=== PATIENT | male | born 1955 | race Caucasian/White ===

== ENCOUNTER 2023-02-25 09:54 | Outpatient (CLI) | payer MEDICARE, SELFPAY ==
[2023-02-25 10:38] LABS: Basophils % 0.5 %; Eosinophils # 0.1 10^3/uL (0.0-0.8); Eosinophils % 0.8 %; Lymphocytes # 0.6 10^3/uL (0.8-4.8); Lymphocytes % 8.5 %; Mean Corpuscular HGB Conc 30.8 g/dL (30-55); Mean Corpuscular Hemoglobin 26.2 pg (27-33); Mean Platelet Volume 11.2 fL (7.4-10.4); Monocytes # 0.4 10^3/uL (0.2-0.9); Monocytes % 6.8 %; Neutrophils # 5.36 10^3/uL (1.8-7.7); Neutrophils % 82.8 %; Nucleated Red Blood Cells % 0 %; Platelet Count 198 10^3/cmm (157-399); Red Blood Count 2.33 10^6/uL (3.85-5.65); Red Cell Distribution Width 15.7 % (12.1-15.1); White Blood Count 6.47 10^3/uL (3.29-11.43)
[2023-02-25 10:53] LABS: Alanine Aminotransferase 25 U/L (0-41); Albumin Level 2.6 g/dL (3.5-5.2); Alkaline Phosphatase 500 U/L (40-130); Anion Gap 13.6 (5-19); Aspartate Amino Transferase 27 U/L (0-40); Blood Urea Nitrogen 13 mg/dL (8-23); Carbon Dioxide 22 mmol/L (22-29); Chloride 105 mmol/L (98-107); Globulin 2.8 g/dL (1.3-4.6); Glomerular Filtration Rate 166.4 mL/min (90-130); Glucose 209 mg/dL (65-115); Osmolality Calculated 290 mOsm/kg (285-295); Potassium 3.6 mmol/L (3.5-5.1); Sodium 137 mmol/L (136-145); Total Bilirubin 1.5 mg/dL (0.15-1.2); Total Protein 5.4 g/dL (6.6-8.7)
[2023-02-25 11:36] LABS: Hematocrit 19.8 % (37-53)
== END 2023-02-25 09:55 | disposition home or self-care (01) ==
PROVIDERS: Visit Provider Nurse Practitioner
DX: D64.9 Anemia, unspecified (principal); K85.90 Acute pancreatitis without necrosis or infection, unspecified
CPT/HCPCS: 36415; 80053; 85025

== ENCOUNTER 2023-02-25 16:32 | Observation (INO) | payer MEDICARE, SELFPAY ==
[2023-02-25] VITALS (9 sets, daily range): BP systolic 95–117; BP diastolic 61–73; PULSE 61–99; RESP 14–18; TEMP 36.7–36.8; O2SAT 96–99; BMI 20.2
[2023-02-25 18:44] LABS: Basophils % 0.3 %; Eosinophils # 0.1 10^3/uL (0.0-0.8); Eosinophils % 1.1 %; Lymphocytes # 0.6 10^3/uL (0.8-4.8); Lymphocytes % 10.2 %; Mean Corpuscular HGB Conc 30.9 g/dL (30-55); Mean Corpuscular Volume 84.3 fl (82-101); Mean Platelet Volume 12.1 fL (7.4-10.4); Monocytes # 0.5 10^3/uL (0.2-0.9); Monocytes % 7.7 %; Neutrophils # 4.87 10^3/uL (1.8-7.7); Nucleated Red Blood Cells % 0 %; Platelet Count 191 10^3/cmm (157-399); Red Blood Count 2.42 10^6/uL (3.85-5.65); Red Cell Distribution Width 15.8 % (12.1-15.1); White Blood Count 6.09 10^3/uL (3.29-11.43)
[2023-02-25 18:47] LABS: Hematocrit 20.4 % (37-53)
--- NOTE | 2023-02-25 18:56 | PC.NURSE ---
Report taken from IVAN Garzon at this time.
--- NOTE | 2023-02-25 19:42 | PC.NURSE ---
Report called to IVAN Keith on Med-Surg. All questions and concerns addressed at time of report.
--- NOTE | 2023-02-25 19:44 | W.ED.RECABL ---
HPI - Recheck/Abnormal Lab/Rx General: Chief Complaint: Recheck/Abnormal Lab/Rx Stated Complaint: low blood count, Dr Lozano sent Time Seen by Provider: 02/25/23 16:57 History of Present Illness: This patient is a 67-year-old white male who presents to the emergency department with anemia. He went to his doctor's office earlier today and his hemoglobin was 6.1. He was sent to the emergency department for transfusion. Patient states he has a history of chronic pancreatitis. States he has some internal bleeding couple of weeks ago secondary to that but it has cleared up now. States he is feeling somewhat weak but is not having any lightheadedness, chest pain or shortness of breath. Patient has had prior blood transfusions secondary to similar circumstances. Patient states he gets care for his chronic pancreatitis at [facility]. Review of Systems General: Reports: 10 or more systems reviewed and unremarkable except in HPI and below Physical Exam Const: COMMON NORMALS: no acute distress, patient oriented x3 and no limitations GENERAL APPEARANCE: cooperative and comfortable HENMT: COMMON NORMALS: normocephalic, atraumatic, Normal nasal mucous membranes and turbinates present, moist oral mucous membranes and oropharynx normal HEAD & SCALP: normal to inspection, normocephalic and atraumatic FACE & SINUS: normal facial exam NOSE: Normal nasal mucous membranes and turbinates present Eye: COMMON NORMALS: Equal, round and reactive pupils present, EOMs intact bilaterally and conjunctivae normal GENERAL EYE: appearance normal, both eyes and all related structures CONJUNCTIVA: Yes conjunctivae normal PUPIL: Yes Equal, round and reactive pupils present Neck/C-Spine: COMMON NORMALS: supple and no JVD Chest: COMMONS NORMALS: normal inspection of the chest Resp: COMMON NORMALS: normal respiratory effort and clear to auscultation bilaterally AUSCULTATION: clear to auscultation bilaterally Cardio: COMMON NORMALS: no JVD, regular rate, regular rhythm, No gallops present (Cardio), No murmurs present (Cardio) and No rub (Cardio) RATE: regular rate RHYTHM: regular rhythm GI: COMMON NORMALS: Normal to inspection, nondistended, normoactive bowel sounds present, Soft to palpation and non-tender AUSCULTATION: Yes normoactive bowel sounds PALPATION: Yes Soft to palpation : COMMON NORMALS: Yes no CVA tenderness BLADDER/KIDNEY EXAM: Yes no CVA tenderness Back/Pelvis: COMMON NORMALS: no CVA tenderness and thoracic and lumbar spine normal to inspection Extremity: COMMON NORMALS: normal to inspection Neuro: COMMON NORMALS: patient oriented x3 and CN's II-XII intact bilaterally Psych: COMMON NORMALS: mental status grossly normal, Normal thought process present and cooperative THOUGHT PROCESS: Normal thought process present Skin: COMMON NORMALS: no rashes or lesions noted, turgor normal and no jaundice GENERAL SKIN EXAM: no rashes or lesions noted, turgor normal and pallor Course Vital Signs: Vital signs: Vital Signs Temperature 98.0 F 02/25/23 16:41 Pulse Rate 79 02/25/23 19:38 Respiratory Rate 18 02/25/23 19:38 Blood Pressure 117/71 02/25/23 19:38 Pulse Oximetry 99 02/25/23 19:38 Oxygen Delivery Me thod Room Air 02/25/23 19:38 MDM - Recheck/Abnormal Lab/Rx Medical Decision Making Recheck of his hemoglobin in the emergency department was 6.3. We did type and screen him. I did discuss the case with Dr. Ozuna, hospitalist. We will admit him to an observation bed for blood transfusion. Patient will be sent to the floor shortly. He is stable. Lab Data 02/25/23 17:15 Laboratory Results WBC 6.09 10^3/uL (3.29-11.43) 02/25/23 17:15 RBC 2.42 10^6/uL (3.85-5.65) L 02/25/23 17:15 Hgb 6.30 g/dL (11.27-16.99) L* 02/25/23 17:15 Hct 20.4 % (37-53) L* 02/25/23 17:15 MCV 84.3 fl (82-101) 02/25/23 17:15 MCH 26.0 pg (27-33) L 02/25/23 17:15 MCHC 30.9 g/dL (30-55) 02/25/23 17:15 RDW 15.8 % (12.1-15.1) H 02/25/23 17:15 Plt Count 191 10^3/cmm (157-399) 02/25/23 17:15 MPV 12.1 fL (7.4-10.4) H 02/25/23 17:15 Neut % (Auto) 80.0 % 02/25/23 17:15 Lymph % (Auto) 10.2 % 02/25/23 17:15 Guthrie % (Auto) 7.7 % 02/25/23 17:15 Eos % (Auto) 1.1 % 02/25/23 17:15 Baso % (Auto) 0.3 % 02/25/23 17:15 Neut # (Auto) 4.87 10^3/uL (1.8-7.7) 02/25/23 17:15 Lymph # (Auto) 0.6 10^3/uL (0.8-4.8) L 02/25/23 17:15 Guthrie # (Auto) 0.5 10^3/uL (0.2-0.9) 02/25/23 17:15 Eos # (Auto) 0.1 10^3/uL (0.0-0.8) 02/25/23 17:15 Baso # (Auto) 0.0 10^3/uL (0.0-0.1) 02/25/23 17:15 Nucleated RBC % (auto) 0 % 02/25/23 17:15 Nucleated RBCs # 0.0 /100WBC 02/25/23 17:15 Blood Type A Positive 02/25/23 17:15 Rho(D) Type Positive 02/25/23 17:15 Antibody Screen Negative 02/25/23 17:15 No radiology studies performed this visit Discharge Plan Discharge Admit Provider: Day Ozuna Condition: Stable Coding Level of Care Code ED Senior Application Security Consultant for Alexander Valerio
--- NOTE | 2023-02-25 19:58 | PM.HP ---
Providers/Chief Complaint Admitting Physician: Day Ozuna MD Chief Complaint: low blood count, Dr Lozano sent History of Present Illness Gareth Brenner is a 67 year old male with history of chronic pancreatitis, has transportation officer at [place], patient is stating that he has received blood transfusion twice in the last 10 years for his GI bleed he has had EGD and colonoscopy and would like to follow-up with his transportation officer at [place]. He is agreeable for stay in the hospital for blood transfusion. He is hemodynamically stable. Globin at the time of admission is 6.3 he was sent from the PCP clinic for drop in hemoglobin otherwise he was not experiencing significant symptoms. Review of Systems Const: Denies: fever(s) Eyes: Denies: change in vision ENMT: Denies: throat pain Card: Denies: chest pain Resp: Denies: dyspnea GI: Denies: abdominal pain : Denies: flank pain Musc: Denies: neck pain Medications/Allergies Home Medications Medication Instructions Recorded Confirmed Last Taken Type calcium 150 mg tablet See Rx Instructions .Route .COMPLEX 02/25/23 02/25/23 02/25/23 History folic acid 1 mg tablet See Rx Instructions .Route .COMPLEX 02/25/23 02/25/23 02/25/23 History qipqme-zynvlsyt-ubsyajg 1 cap PO TIDWM 02/25/23 02/25/23 02/25/23 History 12,000-38,000-60,000 unit capsule,delayed rel (Creon) oxycodone 10 mg tablet 10 mg PO TID PRN Pain 02/25/23 02/25/23 02/25/23 15:30 History vitamin E 600 unit capsule See Rx Instructions .Route .COMPLEX 02/25/23 02/25/23 02/25/23 History ferrous sulfate 325 mg (65 mg See Rx Instructions .Route 02/26/23 02/25/23 02/25/23 Rx iron) tablet (iron) .COMPLEX #30 tabs pantoprazole 40 mg tablet,delayed 40 mg PO DAILY #30 tabs 02/26/23 02/25/23 02/25/23 Rx release (Protonix) Allergies Allergy/AdvReac Type Severity Reaction Status Date / Time No Known Allergies Allergy Verified 02/25/23 19:55 PFSH Acute PFSH: Medical History (Updated 02/26/23 @ 09:59 by Day Ozuna MD) Chronic pancreatitis Family History (Updated 02/26/23 @ 09:59 by Day Ozuna MD) Denies family history of CAD (coronary artery disease) Social History (Updated 02/26/23 @ 09:59 by Day Ozuna MD) Smoking and tobacco status: never smoked Alcohol intake: never Substance/Drug Use: never Vitals/I&O/Wt Last Vital Signs Temp 98.0 F 02/25/23 16:41 Pulse 79 02/25/23 19:38 Resp 18 02/25/23 19:38 BP 117/71 02/25/23 19:38 Pulse Ox 99 02/25/23 19:38 O2 Del Method Room Air 02/25/23 19:38 Weight last 48 hrs Weight 63.957 kg Physical Exam Narrative: Malnourished male GCS 15 No active nausea vomiting Pale complexion GCS 15 Hemodynamic stable Pleasant cooperative Nonfocal neuro exam Awake alert oriented x3 No joint pain Data 02/26/23 04:10 02/26/23 04:10 A&P Assessment and plan (1) GI bleed: (2) Acute on chronic anemia: Plan acute on chronic anemia Severe anemia Without hemodynamic instability We will request iron panel Transfuse 2 units PRBC Patient does not want EGD and colonoscopy in this hospital stating that he would like to follow-up with transportation officer at [place] Continue Protonix 40 mg IV twice daily DVT prophylaxis contraindicated Attestations Medical Necessity Statement*: Discharge within 48-hour Diagnoses GI bleed K92.2 Acute on chronic anemia D64.9
[2023-02-25] MEDS: sodium chloride 0.9% 100 mL Bag 50 ML IV (22:31)
[2023-02-25 23:23] LABS: Ferritin 17 ng/mL (30-400); Iron 10 ug/dL (59-158); Total Iron Binding Capacity 244 mcg/dl; Unsaturated Iron Binding 234 ug/dL (112-347)
[2023-02-25] MEDS: morphine IR 15 mg Tablet PO (23:54)
[2023-02-26] VITALS (13 sets, daily range): BP systolic 94–124; BP diastolic 60–68; PULSE 68–81; RESP 14–18; TEMP 36.7–36.8; O2SAT 96–99
[2023-02-26] MEDS: sodium chloride 0.9% 100 mL Bag 50 ML IV (01:50)
[2023-02-26 04:49] LABS: Reticulocyte % 2.8 % (0.5-2.0)
[2023-02-26 04:52] LABS: Basophils % 0.8 %; Eosinophils # 0.1 10^3/uL (0.0-0.8); Eosinophils % 2.8 %; Hematocrit 25.5 % (37-53); Lymphocytes # 0.8 10^3/uL (0.8-4.8); Lymphocytes % 16.9 %; Mean Corpuscular HGB Conc 31.4 g/dL (30-55); Mean Corpuscular Hemoglobin 26.2 pg (27-33); Mean Corpuscular Volume 83.6 fl (82-101); Mean Platelet Volume 11.1 fL (7.4-10.4); Monocytes # 0.5 10^3/uL (0.2-0.9); Monocytes % 10.3 %; Neutrophils # 3.42 10^3/uL (1.8-7.7); Neutrophils % 68.8 %; Nucleated Red Blood Cells % 0 %; Platelet Count 161 10^3/cmm (157-399); Red Blood Count 3.05 10^6/uL (3.85-5.65); Red Cell Distribution Width 15.9 % (12.1-15.1); White Blood Count 4.97 10^3/uL (3.29-11.43)
[2023-02-26 05:11] LABS: Alanine Aminotransferase 22 U/L (0-41); Albumin Level 2.5 g/dL (3.5-5.2); Alkaline Phosphatase 446 U/L (40-130); Anion Gap 11.7 (5-19); Aspartate Amino Transferase 20 U/L (0-40); Blood Urea Nitrogen 12 mg/dL (8-23); Carbon Dioxide 23 mmol/L (22-29); Chloride 106 mmol/L (98-107); Globulin 2.6 g/dL (1.3-4.6); Glomerular Filtration Rate 166.4 mL/min (90-130); Glucose 114 mg/dL (65-115); Lipase 7 U/L (13-60); Magnesium 1.8 mg/dL (1.7-2.3); Osmolality Calculated 285 mOsm/kg (285-295); Potassium 3.7 mmol/L (3.5-5.1); Sodium 137 mmol/L (136-145); Total Bilirubin 1.8 mg/dL (0.15-1.2); Total Protein 5.1 g/dL (6.6-8.7)
[2023-02-26 05:12] LABS: Creatinine Clr Calc Pharmacy 89.1376
[2023-02-26 05:31] LABS: Folate Level 18.1 ng/mL (4.5-32.2)
[2023-02-26 05:51] LABS: Vitamin B12 > 2000 pg/mL (232-1245)
[2023-02-26] MEDS: morphine IR 15 mg Tablet PO (07:54)
[2023-02-26] MEDS: pantoprazole 40 mg SDV IVP (07:55)
--- NOTE | 2023-02-26 08:54 | PC.CHAP ---
Pastoral Care Encounter/Spiritual Assessment Type of Contact [] Declined electrotype servicer visit [] Patient/Family/Request visit [] Outpatient visit [] Follow-up visit [] Physician referral [] Code/Alert [x] Routine visit [] Staff referral [] Actively dying [] Patient sleeping [] Family support [] [] Out of room [] Palliative care [] [] Receiving care in room [] Pre-surgical visit [] Trauma [] Long length of stay [] ICU visit [] Other: Relational/Emotional Strength [x] Patient feels connected with others/family/visitors/staff [] Distress [] Loneliness/isolation [] Abandonment Spirituality of Patient [] Person of Lorna [] Attends Denominational of their Lorna [] Believes in Prayer [] Reads Bible or Voodoo materials [x] There are Spiritual issues to be addressed Wood Filler Interventions [x] Prayer [] Active listening [x] Non-anxious presence [] Spiritual/emotional support [] Crisis/trauma care [] Spiritual counseling [] Bereavement support [] Provided bereavement packet [] Provided Bible/devotional materials [] Provided toy/stuffed animal, coloring book to patient or family member [] Provided Communion [] Anointing/[place] [] Salvation [x] Completed spiritual assessment [] Other: Impact on Illness or Injury [] Angry [] Fearful [] Anxious [] Often cries [] Exhaustion [] Unable to work [] Unable to attend yazidism [] Unable to walk/stand [] Unable to read [] Unable to drive [] Unable to eat/drink [] Unable to sleep [] Unable to be with family [] Patient intubated [] Other: Summary Time spent with patient 5 min
--- NOTE | 2023-02-26 09:00 | P.DS_ITS ---
Discharge Providers Date of Admission: 02/25/23 19:15 Date of Discharge: February 26, 2023 Attending Provider at Admission: Day Ozuna MD Attending Provider at Discharge: Day Ozuna MD Diagnoses at Discharge Discharge Diagnosis (1) GI bleed: Status: Acute (2) Acute on chronic anemia: Status: Acute Reason for Visit Reason for Visit: low blood count, Dr Lozano sent Hospital Course Hospital Course 67-year-old male with history of cardiac insufficiency, uses pancreatic enzymes, was admitted for management of severe anemia he was given 2 unit PRBC and 1 bag of iron, his iron is extremely low, patient is stating that he will like to follow-up with instructional interventionist at [place] he does not want EGD and colonoscopy in the hospital, blood pressure 124/60 mmHg, he is not tachycardic. He will continue his pancreatic enzymes iron and folic acid at home. Continue Protonix at the time of discharge. Patient had acute on chronic GI blood loss normocytic anemia his MCV is low normal range secondary to iron deficiency.. He is being discharged with stable hemodynamics. Physical Exam Narrative: Hemodynamically stable GCS 15 Abdomen soft No active nausea or vomiting Pleasant and cooperative Discharge Data Studies Completed and Pending Pending at discharge Category Date Time Status Occult Blood Stool [Immunochemical Fecal OCB] Routine Lab 02/25/23 20:00 Uncollected Laboratory Results WBC 4.97 10^3/uL (3.29-11.43) 02/26/23 04:10 RBC 3.05 10^6/uL (3.85-5.65) L 02/26/23 04:10 Hgb 8.00 g/dL (11.27-16.99) L 02/26/23 04:10 Hct 25.5 % (37-53) L 02/26/23 04:10 MCV 83.6 fl (82-101) 02/26/23 04:10 MCH 26.2 pg (27-33) L 02/26/23 04:10 MCHC 31.4 g/dL (30-55) 02/26/23 04:10 RDW 15.9 % (12.1-15.1) H 02/26/23 04:10 Plt Count 161 10^3/cmm (157-399) 02/26/23 04:10 MPV 11.1 fL (7.4-10.4) H 02/26/23 04:10 Neut % (Auto) 68.8 % 02/26/23 04:10 Lymph % (Auto) 16.9 % 02/26/23 04:10 Burke % (Auto) 10.3 % 02/26/23 04:10 Eos % (Auto) 2.8 % 02/26/23 04:10 Baso % (Auto) 0.8 % 02/26/23 04:10 Reticulocyte % (Auto) 2.8 % (0.5-2.0) H 02/26/23 04:10 Neut # (Auto) 3.42 10^3/uL (1.8-7.7) 02/26/23 04:10 Lymph # (Auto) 0.8 10^3/uL (0.8-4.8) 02/26/23 04:10 Burke # (Auto) 0.5 10^3/uL (0.2-0.9) 02/26/23 04:10 Eos # (Auto) 0.1 10^3/uL (0.0-0.8) 02/26/23 04:10 Baso # (Auto) 0.0 10^3/uL (0.0-0.1) 02/26/23 04:10 Nucleated RBC % (auto) 0 % 02/26/23 04:10 Nucleated RBCs # 0.0 /100WBC 02/26/23 04:10 Sodium 137 mmol/L (136-145) 02/26/23 04:10 Potassium 3.7 mmol/L (3.5-5.1) 02/26/23 04:10 Chloride 106 mmol/L (98-107) 02/26/23 04:10 Carbon Dioxide 23 mmol/L (22-29) 02/26/23 04:10 Anion Gap 11.7 (5-19) 02/26/23 04:10 BUN 12 mg/dL (8-23) 02/26/23 04:10 Creatinine 0.5 mg/dL (0.7-1.2) L 02/26/23 04:10 GFR Calculation 166.4 mL/min (90-130) H 02/26/23 04:10 Glucose 114 mg/dL (65-115) 02/26/23 04:10 Calculated Osmolality 285 mOsm/kg (285-295) 02/26/23 04:10 Calcium 8.0 mg/dL (8.5-10.5) L 02/26/23 04:10 Magnesium 1.8 mg/dL (1.7-2.3) 02/26/23 04:10 Iron 10 ug/dL (59-158) L 02/25/23 17:15 TIBC 244 mcg/dl 02/25/23 17:15 % Saturation 4.0 % (20-50) L 02/25/23 17:15 Unsat Iron Binding 234 ug/dL (112-347) 02/25/23 17:15 Ferritin 17 ng/mL (30-400) L 02/25/23 17:15 Total Bilirubin 1.8 mg/dL (0.15-1.2) H 02/26/23 04:10 AST 20 U/L (0-40) 02/26/23 04:10 ALT 22 U/L (0-41) 02/26/23 04:10 Alkaline Phosphatase 446 U/L (40-130) H 02/26/23 04:10 Total Protein 5.1 g/dL (6.6-8.7) L 02/26/23 04:10 Albumin 2.5 g/dL (3.5-5.2) L 02/26/23 04:10 Globulin 2.6 g/dL (1.3-4.6) 02/26/23 04:10 Lipase 7 U/L (13-60) L 02/26/23 04:10 Vitamin B12 > 2000 pg/mL (232-1245) H 02/26/23 04:10 Folate 18.1 ng/mL (4.5-32.2) 02/26/23 04:10 Blood Type A Positive 02/25/23 17:15 Rho(D) Type Positive 02/25/23 17:15 Antibody Screen Negative 02/25/23 17:15 Crossmatch See Detail 02/25/23 17:15 Vitals Last Vital Signs Temp 98.0 F 02/26/23 04:27 Pulse 69 02/26/23 08:38 Resp 16 02/26/23 08:38 BP 124/60 02/26/23 07:58 Pulse Ox 96 02/26/23 08:38 O2 Del Method Room Air 02/26/23 08:38 Discharge Plan Discharge Patient Disposition: Home Condition: Stable Prescriptions: Continued oxycodone 10 mg Tablet 10 mg PO TID PRN (Reason: Pain) Creon 12,000-38,000 -60,000 unit Capsule,Delayed Release(Dr/Ec) 1 cap PO TIDWM Rx Instructions: administer with meals and/or snacks vitamin E 600 unit Capsule See Rx Instructions .ROUTE .COMPLEX Rx Instructions: unknown dose folic acid 1 mg Tablet See Rx Instructions .ROUTE .COMPLEX Rx Instructions: unknown dose calcium 150 mg Tablet See Rx Instructions .ROUTE .COMPLEX Rx Instructions: unknown dose Protonix 40 mg Tablet,Delayed Release (Dr/Ec) 40 mg PO DAILY Qty: 30 0RF iron 325 mg (65 mg iron) Tablet See Rx Instructions .ROUTE .COMPLEX Qty: 30 0RF Rx Instructions: unknown dose Discharge Orders: Discharge Order (Routine); Ordered 02/26/23 Ordered By: Day Ozuna Referrals: Glynn Lozano FNP [Referring] - 03/09/23 9:45 am (appointment with on 03/09/23 at 9:45am ) Patient Instructions: Anemia, GI Bleeding, Opioid Safety Discharge Attestations Time Spent in Discharge Care*: less than 30 min Quality Metrics Clinical Quality Measures [ No reported AMI, CVA or VTE this stay] Coding Level of Care Code Acute Code for Chg Fwd Diagnoses GI bleed K92.2 Acute on chronic anemia D64.9
[2023-02-26] MEDS: iron sucrose 200 MG in sodium chloride 0.9% (100 ml) 100 ML 220 MG IV (09:38)
== END 2023-02-26 11:24 | disposition home or self-care (01) ==
LOC: ER 16:57 → MEDSURG 19:30
PROVIDERS: Admitting Provider Internal Medicine; Emergency Provider Emergency Medicine; Visit Provider Internal Medicine
DX: K92.2 Gastrointestinal hemorrhage, unspecified (principal); D64.9 Anemia, unspecified; K85.90 Acute pancreatitis without necrosis or infection, unspecified
CPT/HCPCS: 36415; 36430; 80053; 82607; 82728; 82746; 83540; 83550; 83690; 83735; 85025; 85045; 86850; 86900; 86920; 96365; 96375; 99285; C9113; G0378; J1756; P9016

== ENCOUNTER 2023-05-20 11:12 | Outpatient (CLI) | payer MEDICARE, SELFPAY ==
[2023-05-20 11:48] LABS: Basophils % 0.1 %; Eosinophils % 0.4 %; Hematocrit 29.4 % (37-53); Lymphocytes # 0.4 10^3/uL (0.8-4.8); Lymphocytes % 5.2 %; Mean Corpuscular HGB Conc 31.3 g/dL (30-55); Mean Corpuscular Hemoglobin 25.2 pg (27-33); Mean Corpuscular Volume 80.5 fl (82-101); Mean Platelet Volume 10.8 fL (7.4-10.4); Monocytes # 0.4 10^3/uL (0.2-0.9); Neutrophils # 6.94 10^3/uL (1.8-7.7); Neutrophils % 88.7 %; Nucleated Red Blood Cells % 0 %; Platelet Count 205 10^3/cmm (157-399); Red Blood Count 3.65 10^6/uL (3.85-5.65); Red Cell Distribution Width 22.3 % (12.1-15.1); White Blood Count 7.83 10^3/uL (3.29-11.43)
[2023-05-20 12:04] LABS: Ammonia 31 umol/L (16-60)
[2023-05-20 12:11] LABS: Alanine Aminotransferase 33 U/L (0-41); Albumin Level 2.9 g/dL (3.5-5.2); Amylase 32 U/L (28-100); Blood Urea Nitrogen 12 mg/dL (8-23); Calcium 8.6 mg/dL (8.5-10.5); Carbon Dioxide 24 mmol/L (22-29); Chloride 107 mmol/L (98-107); Glomerular Filtration Rate 215.2 mL/min (90-130); Glucose 99 mg/dL (65-115); Lipase 20 U/L (13-60); Osmolality Calculated 290 mOsm/kg (285-295); Sodium 140 mmol/L (136-145); Total Protein 6.9 g/dL (6.6-8.7)
[2023-05-20 12:15] LABS: Anion Gap 12.6 (5-19); Aspartate Amino Transferase 55 U/L (0-40); Potassium 3.6 mmol/L (3.5-5.1)
[2023-05-20 12:18] LABS: Alkaline Phosphatase 1155 U/L (40-130)
== END 2023-05-20 11:13 | disposition home or self-care (01) ==
LOC: LAB 11:13
PROVIDERS: Visit Provider Nurse Practitioner
DX: R60.9 Edema, unspecified (principal)
CPT/HCPCS: 36415; 80053; 82140; 82150; 83690; 85025